=== PATIENT | male | born 1990 | race Caucasian/White ===

== ENCOUNTER 2021-12-29 17:36 | Emergency (ER) | payer BC ==
[~2021-12-29] VITALS: Ht 185.4 cm; Wt 80.7 kg
--- NOTE | 2021-12-29 18:18 | NUR ---
BIBSelf, C/O LEFT UPPER EXTREMITY AND LEFT ARM NUMB AND TINGLING, STATE HE SLEPT ON COUCH FOR 3 DAYS AND FAVORED LEANING ONTO LEFT SIDE, HAS HAD FIVE COVID VAX SHOTS THE 2 VAX AND THE THREE BOOSTERS AND THE FLU SHOT.
--- NOTE | 2021-12-29 18:35 | NUR ---
IV 21 GAUGE R A/C INTACT PATENT AND FLUSING WELL
[2021-12-29 19:45] LABS: ALBUMIN 3.8 g/dL (3.4-5.0); BILIRUBIN,DIRECT 0.2 mg/dL (0.0-0.2); BILIRUBIN,TOTAL 0.5 mg/dL (0.2-1.0); CALCIUM, SERUM 8.9 mg/dL (8.5-10.1); CREATININE 0.8 mg/dL (0.6-1.3); POTASSIUM 3.5 mmol/L (3.5-5.1); TOTAL PROTEIN, SERUM 6.5 g/dL (6.4-8.2)
[2021-12-29 20:07] LABS: BASOPHILS % (AUTO) 0.4 % (0.0-2.0); EOSINOPHILS % (AUTO) 1.4 % (0.0-6.0); HEMATOCRIT 41 % (39-51); HEMOGLOBIN 14.1 g/dL (13.5-17.5); LYMPHOCYTES # (AUTO) 1.2 K/uL (0.8-4.8); LYMPHOCYTES % (AUTO) 14.7 % (20.0-44.0); MEAN CORPUSCULAR HGB CONC 34 g/dl (31.0-36.0); MEAN CORPUSCULAR VOLUME 87 fL (80-96); MONOCYTES # (AUTO) 0.7 K/uL (0.1-1.30); MONOCYTES % (AUTO) 8.9 % (2.0-12.0); NEUTROPHILS % (AUTO) 74.6 % (43.0-81.0); PLATELET COUNT (AUTO) 207 K/uL (150-450); RED BLOOD CELL COUNT(AUTO) 4.77 MIL/uL (4.5-6.0); WHITE BLOOD COUNT (AUTO) 8.1 K/uL (4.3-11.0)
[2021-12-29 20:28] VITALS: BP 112/81
--- NOTE | 2021-12-29 20:29 | NUR ---
Patient discharged to home in stable condition and in no acute distress. Written and verbal after care instructions given to patient and his mom. Patient verbalizes understanding of instruction. IV removed. Catheter intact and site benign. Pressure and 4x4 applied to site. No bleeding noted. patient ambulatory with a steady gait.
== END 2021-12-29 20:30 | disposition home or self-care (01) ==
LOC: ER 17:41
DX: R00.2 Palpitations (principal); F41.9 Anxiety disorder, unspecified
CPT/HCPCS: 36415; 80048-TC; 80076-TC; 85025-TC

== ENCOUNTER 2023-02-03 14:09 | Emergency (ER) | payer BC, OTHER ==
[~2023-02-03] VITALS: Ht 190.5 cm; Wt 79.4 kg
[2023-02-03] MEDS ORDERED: TDAP [DIPH/PERTUSSIS/TET] 0.5 ML VIAL IM ONE ×2 (16:30→16:57)
[2023-02-03] MEDS ORDERED: BACI/NEOM/POLY B OINT PKT 1 UDPKT PACKET TP ONE (16:30)
[2023-02-03 17:44] VITALS: BP 130/93; TEMP 98.8; O2SAT 99
== END 2023-02-03 18:00 | disposition home or self-care (01) ==
LOC: ER 14:19
DX: S60.222A Contusion of left hand, initial encounter (principal); S00.81XA Abrasion of other part of head, initial encounter; W18.30XA Fall on same level, unspecified, initial encounter; Y93.89 Activity, other specified; Y92.89 Other specified places as the place of occurrence of the external cause; Y99.8 Other external cause status
CPT/HCPCS: 70450-TC; 70486-TC; 73130-TC; 90715